=== PATIENT | female | born 1995 | race Caucasian/White ===

== ENCOUNTER → 2020-12-31 | Outpatient (CLI) | payer BC | END | disposition home or self-care (01) | LOC: US 10:30 | PROVIDERS: ATTEND Nurse Practitioner Women's Health | DX: O34.81 Maternal care for other abnormalities of pelvic organs, first trimester (principal); N83.11 Corpus luteum cyst of right ovary; Z3A.10 10 weeks gestation of pregnancy ==

== ENCOUNTER → 2021-03-08 | Outpatient (CLI) | payer BC | END | disposition home or self-care (01) | LOC: US 07:29 | PROVIDERS: ATTEND Obstetrics & Gynecology | DX: Z34.02 Encounter for supervision of normal first pregnancy, second trimester (principal); Z3A.20 20 weeks gestation of pregnancy ==

== ENCOUNTER → 2021-04-14 | Outpatient (CLI) | payer BC | END | disposition home or self-care (01) | LOC: US 15:46 | PROVIDERS: ATTEND Nurse Practitioner Women's Health | DX: Z34.02 Encounter for supervision of normal first pregnancy, second trimester (principal); Z36.2 Encounter for other antenatal screening follow-up; Z3A.25 25 weeks gestation of pregnancy ==